=== PATIENT | male | born 1995 | race Caucasian/White ===

== ENCOUNTER 2024-10-25 01:23 | Emergency (ER) | payer SELFPAY ==
[2024-10-25 01:26] VITALS: BP 154/95; PULSE 98; RESP 18; TEMP 36.8; O2SAT 98
--- NOTE | 2024-10-25 01:35 | ED_ITS ---
HPI - General Adult General Chief complaint: Dental/Oral Stated complaint: dental Time Seen by Provider: 10/25/24 01:35 Source: patient Mode of arrival: ambulatory Limitations: no limitations History of Present Illness HPI narrative: 29-year-old white male complains of left upper molar toothache for the past year worse for the last 3 days. He has taken Tylenol with some relief. His pain was a 9/10 tonight he could not sleep it is getting little better since he took some Tylenol. Denies any other pain problems eating or drinking voiding or stooling walking talking seeing or hearing earache her other pains dizziness or lightheadedness rash or itching swelling lumps or bumps fever cough runny nose sore throat or any other complaints Related Data Home Medications Medication Instructions Recorded Confirmed Last Taken Type No Home Medications 10/25/24 10/25/24 Unknown History Allergies Allergy/AdvReac Type Severity Reaction Status Date / Time No Known Allergies Allergy Verified 10/25/24 01:28 Review of Systems Review of Systems: All systems reviewed & are unremarkable except as noted in HPI and below PMFSH Comments past medical history anxiety other significant past medical history Exam Narrative: White male patient with no apparent distress. Head normocephalic, atraumatic. Eyes conjunctiva pink sclera nonicteric. Extraocular movements are intact. Ears externally normal. TMs normal Oropharynx is clear with moist mucous membra delvin without exudates. actually has good looking teeth he does have some swelling and tenderness of his left upper posterior molar gums area. The rest of his teeth looking good shape posterior pharynx is clear without exudates Neck is supple nontender no lymphadenopathy. Back is nontender. Lungs are clear. Heart is regular rate and rhythm without murmurs gallops or rubs. Chest wall nontender. Extremities no cyanosis clubbing or edema. Skin is warm and dry without rashes or lesions. Neurological patient is alert and oriented x 4. Motor and sensory grossly intact. Gait is normal. Course Vital Signs Vital signs: Vital Signs Temperature 36.8 C 10/25/24 01:26 Pulse Rate 98 10/25/24 01:26 Respiratory Rate 18 10/25/24 01:26 Blood Pressure 154/95 H 10/25/24 01:26 Pulse Oximetry 98 10/25/24 01:26 Oxygen Delivery Room Air 10/25/24 01:26 Temperature 36.8 C 10/25/24 01:26 Pulse Rate 98 10/25/24 01:26 Respiratory Rate 18 10/25/24 01:26 Blood Pressure 154/95 H 10/25/24 01:26 Pulse Oximetry 98 10/25/24 01:26 Oxygen Delivery Room Air 10/25/24 01:26 Medical Decision Making MDM Narrative Medical decision making narrative: Patient was placed in Room # to History and physical was performed. Independent Historian: patient External Source Review: Differential Dx includes but not limited to: dental irena abscess to sinusitis Medications were Reviewed: home meds reviewed Independently Interpreted by me: Meds, treatment, ED course: Toradol 30 mg IM and Pen-VK 500 Social Situation Impacting Patients Care: patient lacks dental insurance Shared decision Making: evaluation discussed all questions were asked and answered patient agreed with the plan. Would follow up with dentist next Thursday if not sooner. Discussed with Dr. ZHU DIAGNOSIS: Dental abscess DISPOSITION: discharge home CONDITION AT DISCHARGE: stable Vital Signs Vital Signs: Vital Signs Temperature 36.8 C 10/25/24 01:26 Pulse Rate 98 10/25/24 01:26 Respiratory Rate 18 10/25/24 01:26 Blood Pressure 154/95 H 10/25/24 01:26 Pulse Oximetry 98 10/25/24 01:26 Oxygen Delivery Room Air 10/25/24 01:26 Temperature 36.8 C 10/25/24 01:26 Pulse Rate 98 10/25/24 01:26 Respiratory Rate 18 10/25/24 01:26 Blood Pressure 154/95 H 10/25/24 01:26 Pulse Oximetry 98 10/25/24 01:26 Oxygen Delivery Room Air 10/25/24 01:26 Discharge Plan Discharge Clinical Impression: Dental abscess Patient Disposition: Home Condition: Stable Instructions: Antibiotic Form, Dental Abscess (ED) Additional Instructions: Pen-VK 500 twice a day for 10 days. Tylenol 1000 mg 4 times a day ibuprofen 200 m tablets 3 times a day as needed for pain. Tramadol 50 mg every 6 hours as needed for pain. follow-up with a dentist from list given. Return if you get worse or develops any new symptoms. Patient Language: Sinhala Prescriptions: New penicillin V potassium 500 mg tablet 500 mg PO Q12H 10 Days Qty: 20 0RF tramadol 50 mg tablet 50 mg PO Q6H PRN (Reason: pain) Qty: 15 0RF No Action No Home Medications Follow-up/Referrals: Feliz Steiner MD [Primary Care Provider] - Stand Alone Forms: Work/School Release IP
--- OUTSIDE RECORDS SUMMARY | 2024-10-25 01:37 | XMS_ITS | Clinical Summary ---
Author Organization [facility] Address [address] [place] [address] Care Team Providers Care Pharmaceutical Sales Name Role Phone Fidelina Be MD Primary Care Provider [phone] Allergies No known active allergies Medications No known medications Active Problems Problem Noted Date Diagnosed Date Esophageal obstruction due to food impaction 02/2024 Acute esophageal obstruction 2023 Esophageal abnormality 2023 Family History Medical History Relation Comments No Known Problems Father No Known Problems Mother Relation Status Comments Father Alive Mother Alive Social History Tobacco Use Types Packs/Day Years Used Date Smoking Tobacco: Former Cigarettes Smokeless Tobacco: Never Comments:Vaps Alcohol Use Standard Drinks/Week Comments Yes 0 (1 standard drink = 0.6 oz pur e alcohol) once a month [facility] Utilities Answer Date Recorded In the past 12 months has [employer], gas, oil, or water [email or web address] threatened to shut off services in your home? No 2023 Humiliation, Afraid, Rape, and Kick questionnair e Answer Date Recorded Within the last year, have y ou been afraid of your partner or ex-partner? No 2023 Within the last year, have y ou been humiliated or emotionally abused in other ways by your partner or ex-partner? No Within the last year, have y ou been kicked, hit, slapped, or otherwise physically hurt by your partner or ex-partner? No 2023 Within the last year, have y ou been raped or forced to have any kind of sexual activity by your partner or ex-partner? No 2023 AUDIT-C Answer Date Recorded Q1: How often do you have a drink containing alc ohol? Monthly or less 2023 Q2: How many drinks containi ng alcohol do you have on a typical day when you are drinking? 1 or 2 2023 Q3: How often do you have si x or more drinks on one occasion? Less than monthly 2023 Overall Financial Resource Strain (CARDIA) Answe r Date Recorded How hard is it for you to pa y for the very basics like food, housing, medical care, and heating? Not hard at all 2023 PHQ-2 Answer Date Recorded Patient Health Questionnaire-2 Score 0 2023 [facility] - Occupational Stress Questionnaire Answer Date Recorded Do you feel stress - tense, restless, nervous, or anxious, or unable to sleep at night because your mind is troubled all the time - these days? Only a little 2023 Exercise Vital Sign Answer Date Recorde d On average, how many days pe r week do you engage in moderate to strenuous exercise (like a brisk walk)? 0 days Minutes of Exercise per Session Not on file 2023 Hunger Vital Sign Answer Date Recorded Within the past 12 months, y ou worried that your food would run out before you got the money to buy more. Never true 08/21/19 24 Within the past 12 months, t he food you bought just didn't last and you didn't have money to get more. Never true 2023 PRAPARE - Transportation Answer Date Re corded In the past 12 months, has l ack of transportation kept you from medical appointments or from getting medications? No 08/06 In the past 12 months, has l ack of transportation kept you from meetings, work, or from getting things needed for daily living? No 2023 Housing Stability Vital Sign Answer Donovan e Recorded In the last 12 months, was t here a time when you were not able to pay the mortgage or rent on time? No 2023 In the last 12 months, how many places have you lived? 1 2023 In the last 12 months, was t here a time when you did not have a steady place to sleep or slept in a snf (including now)? No 2023 Sex and Gender Information Value Date Recorded Sex Assigned at Male 2023 9:02 PM CDT Legal Sex Male 7:23 AM [employer] Gender Identity Male 2023 9:02 PM CDT Sexual Orientation Straight 2023 9: 02 PM CDT Last Filed Vital Signs Vital Sign Reading Time Taken Comments Blood Pressure 122/71 03/16/2024 3:15 PM CDT Pulse 66 03/16/2024 3:15 PM CDT Temperature 36.9 C (98.4 F) 03/16/2024 1:06 PM CDT Respiratory Rate 16 03/16/2024 3:15 PM CDT Oxygen Saturation 100% 03/16/2024 3:15 PM CDT Inhaled Oxygen Concentration - - Weight 115.3 kg (254 lb 4 oz) 03/16/2024 11:04 A M CDT Height 177.8 cm (5' 10 ) 03/16/2024 11:04 AM CDT Body Mass Index 36.48 03/16/2024 11:04 AM CDT Plan of Treatment Health Maintenance Due Date Last Done Comments Annual Physical 08/22/1999 Hepatitis C 2014 DTaP, Tdap and Td Vaccines (4 - Td or Tdap) 01/28/2021 01/28/2011, 05/21/2001, 06/11/1998, Additional history exists COVID-19 Vaccine ( season) 2024 04/05/2021 Hepatitis B Vaccines Completed 03/07/1997, 01/03/1997, 1996 Meningococcal Vaccine Aged Out 01/28/2011 No sarabjit imtiaz eligible based on patient's age to complete this topic HPV Vaccines Aged Out No longer eligi ble based on patient's age to complete this topic Meningococcal B Vaccine Aged Out No l onger eligible based on patient's age to complete this topic Pneumococcal Vaccine: Pediatrics (0 to 5 Years) and At-Risk Patients (6 to 49 Years) Aged Out No longer eligible based on patient's age to complete this topic RSV Immunizations Under 20 Months Aged Out No longer eligible based on patient's age to complete this topic Advance Directives * Full Code (Latest Code Status on File) Date Activated Date Inactivated Comments 2023 10:15 PM 08/22/2023 3:20 PM Care Teams Pharmaceutical Sales Relationship Specialty Start Date End Date Watt, Fidelina J, MD [address] [place] [place] [address] PCP - General FAMILY PRACTICE 08/21/23
[2024-10-25] MEDS: KETOROLAC 30 MG/ML VIAL (*BKC) IM (01:47)
[2024-10-25] MEDS: PENICILLIN V POTASSIUM 250 MG TABLET 500 MG PO (01:47)
[2024-10-25 02:11] VITALS: BP 136/71; PULSE 74; RESP 18; O2SAT 99
== END 2024-10-25 02:11 | disposition home or self-care (01) ==
PROVIDERS: Emergency Provider Emergency Medicine; PCP Internal Medicine
DX: K04.7 Periapical abscess without sinus (principal)
CPT/HCPCS: 96372; 99283; A9270; J1885